=== PATIENT | female | born 1995 | race Caucasian/White ===

== ENCOUNTER 2018-08-10 18:06 | Emergency (ER) | payer OTHER ==
--- NOTE | 2018-08-10 18:12 | ER Report ---
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 Patient began to feel lightheaded and nauseous after which time she walked around outside for a while prior to proceeding to an urgent care center. Staff at the urgent care center contacted poison control who recommended evaluation for an acidosis at which time she was transferred to the emergency department for further evaluation. I spoke with the Poison Control Center shortly after patient arrival and confirm that they recommended a CBC, CMP, lactate, ABG and a cyanide level send off. Patient was well-appearing at time of evaluation, hemodynamically stable with no respiratory distress or presyncopal episodes. Patient is afebrile. Patient denies headache, chest pain, shortness breath, abdominal pain, vomiting or rashes. REVIEW OF SYSTEMS: Constitutional: No fever, no chills. Eyes: No discharge. ENT: No sore throat. Cardiovascular: No chest pain, no palpitations. Respiratory: No cough, no shortness of breath. Gastrointestinal: No abdominal pain, no vomiting, + mild nausea Genitourinary: No hematuria. Musculoskeletal: No back pain. Skin: No rashes. Neurological: No headache, + dizziness Allergies: Coded Allergies: Penicillins (Verified Allergy, Unknown, 08/10/18) Home Meds No Active Prescriptions or Reported Meds Constitutional Vital Sign - Last 24 Hours 08/10/18 08/10/18 08/10/18 08/10/18 18:10 18:10 18:21 18:36 Temp 98.0 Pulse 87 71 68 Resp 20 B/P (MAP) 110/83 (92) 110/83 Pulse Ox 98 93 96 O2 Delivery Room Air 08/10/18 08/10/18 08/10/18 08/10/18 18:51 19:06 19:21 19:36 Pulse 68 75 70 71 Pulse Ox 90 100 100 90 08/10/18 08/10/18 08/10/18 08/10/18 19:51 19:56 20:11 20:26 Pulse 65 61 68 62 Pulse Ox 100 100 100 100 08/10/18 08/10/18 08/10/1818 20:38 20:41 20:56 21:00 Pulse 67 62 B/P (MAP) 113/90 (98) 111/82 (92) Pulse Ox 100 100 08/10/18 08/10/18 08/10/18 08/10/18 21:11 21:26 21:31 21:46 Temp 98.3 Pulse 65 61 84 54 Pulse Ox 100 100 100 100 Physical Exam General Appearance: The patient is alert, has no immediate need for airway protection and no signs of toxicity. No acute distress Eyes: Pupils equal and round no pallor or injection. ENT, Mouth: Mucous membranes are moist. Respiratory: There are no retractions, lungs are clear to auscultation. Cardiovascular: Regular rate and rhythm. [ ] Gastrointestinal: Abdomen is soft and non tender, no masses, bowel sounds norm al. Neurological: No focal neurological deficits Skin: Warm and dry, no rashes. Musculoskeletal: Neck is supple non tender. Extremities are nontender, nonswollen and have full range of motion. DIFFERENTIAL DIAGNOSIS: After history and physical exam differential diagnosis was considered for dizziness including but not limited to peripheral and central causes of vertigo, orthostatic causes including dehydration, and blood loss, cyanide toxicity Medical Decision Making Data Points Result Diagram: 08/10/18 1836 08/10/18 1836 Laboratory Hematology Test 08/10/18 18:36 08/10/18 21:37 Red Blood Count 4.79 M/uL (4.17-5.56) Mean Corpuscular Volume 86.7 fL (80.0-96.0) Mean Corpuscular Hemoglobin 30.8 pg (26.0-33.0) Mean Corpuscular Hemoglobin Concent 35.5 g/dL (32.0-36.0) Red Cell Distribution Width 12.2 % (11.5-14.5) Mean Platelet Volume 9.7 fL (7.2-11.1) Neutrophils (%) (Auto) 51.8 % (39.4-72.5) Lymphocytes (%) (Auto) 39.4 % (17.6-49.6) Monocytes (%) (Auto) 7.2 % (4.1-12.4) Eosinophils (%) (Auto) 1.0 % (0.4-6.7) Basophils (%) (Auto) 0.6 % (0.3-1.4) Nucleated RBC Relative Count (auto) 0.1 /100WBC Neutrophils # (Auto) 2.8 K/uL (2.0-7.4) Lymphocytes # (Auto) 2.2 K/uL (1.3-3.6) Monocytes # (Auto) 0.4 K/uL (0.3-1.0) Eosinophils # (Auto) 0.1 K/uL (0.0-0.5) Basophils # (Auto) 0.0 K/uL (0.0-0.1) Nucleated RBC Absolute Count (auto) 0.00 K/uL Blood Gas Puncture Site Right radial Arterial Blood pH 7.54 (7.35-7.45) Arterial Blood Partial Pressure CO2 25 mmHg (32-37) Arterial Blood Partial Pressure O2 127 mmHg (60-80) Arterial Blood HCO3 22 mmol/L (20-26) Arterial Blood Oxygen Saturation 99 % (92-100) Arterial Blood Base Excess -1.0 mmol/L Gray Test Acceptable Carboxyhemoglobin 0.0 % (< 5.0) Sodium Level 138 mmol/L (137-145) Potassium Level 3.5 mmol/L (3.5-5.0) Chloride Level 104 mmol/L (98-107) Carbon Dioxide Level 23 mmol/L (22-31) Blood Urea Nitrogen 15 mg/dl (7-18) Creatinine 0.90 mg/dl (0.52-1.04) Glomerular Filtration Rate Calc > 60.0 Random Glucose 88 mg/dl (75-110) Calcium Level 9.7 mg/dl (8.4-10.2) Total Bilirubin 0.8 mg/dl (0.2-1.3) Aspartate Amino Transf (AST/SGOT) 21 U/L (0-35) Alanine Aminotransferase (ALT/SGPT) 26 U/L (0-56) Alkaline Phosphatase 44 U/L (0-126) Total Protein 7.5 g/dl (6.3-8.2) Albumin 4.3 g/dl (3.5-5.0) Human Chorionic Gonadotropin, Qual Negative (NEGATIVE) Salicylates Level < 10 mg/L Salicylate Last Dose Date unknown Acetaminophen Level < 10 ug/ml Blood Gas Patient Temperature 98.2 DEGREES Venous Blood pH 7.43 (7.31-7.41) Venous Blood Partial Pressure CO2 37 mmHg Venous Blood Partial Pressure O2 < 35 mmHg Venous Blood HCO3 0 mmol/L Venous Blood Oxygen Saturation 66 % Venous Blood Base Excess 24 mmol/L Oxygen Liters/Minute 3.5 Lactate 0.7 mmol/L (0.7-2.1) Chemistry Test 08/10/18 18:36 08/10/18 21:37 White Blood Count 5.5 k/uL (4.5-11.0) Red Blood Count 4.79 M/uL (4.17-5.56) Hemoglobin 14.7 g/dL (12.0-16.0) Hematocrit 41.5 % (34.0-47.0) Mean Corpuscular Volume 86.7 fL (80.0-96.0) Mean Corpuscular Hemoglobin 30.8 pg (26.0-33.0) Mean Corpuscular Hemoglobin Concent 35.5 g/dL (32.0-36.0) Red Cell Distribution Width 12.2 % (11.5-14.5) Platelet Count 162 K/uL (150-450) Mean Platelet Volume 9.7 fL (7.2-11.1) Neutrophils (%) (Auto) 51.8 % (39.4-72.5) Lymphocytes (%) (Auto) 39.4 % (17.6-49.6) Monocytes (%) (Auto) 7.2 % (4.1-12.4) Eosinophils (%) (Auto) 1.0 % (0.4-6.7) Basophils (%) (Auto) 0.6 % (0.3-1.4) Nucleated RBC Relative Count (auto) 0.1 /100WBC Neutrophils # (Auto) 2.8 K/uL (2.0-7.4) Lymphocytes # (Auto) 2.2 K/uL (1.3-3.6) Monocytes # (Auto) 0.4 K/uL (0.3-1.0) Eosinophils # (Auto) 0.1 K/uL (0.0-0.5) Basophils # (Auto) 0.0 K/uL (0.0-0.1) Nucleated RBC Absolute Count (auto) 0.00 K/uL Blood Gas Puncture Site Right radial Arterial Blood pH 7.54 (7.35-7.45) Arterial Blood Partial Pressure CO2 25 mmHg (32-37) Arterial Blood Partial Pressure O2 127 mmHg (60-80) Arterial Blood HCO3 22 mmol/L (20-26) Arterial Blood Oxygen Saturation 99 % (92-100) Arterial Blood Base Excess -1.0 mmol/L Gray Test Acceptable Carboxyhemoglobin 0.0 % (< 5.0) Glomerular Filtration Rate Calc > 60.0 Calcium Level 9.7 mg/dl (8.4-10.2) Total Bilirubin 0.8 mg/dl (0.2-1.3) Aspartate Amino Transf (AST/SGOT) 21 U/L (0-35) Alanine Aminotransferase (ALT/SGPT) 26 U/L (0-56) Alkaline Phosphatase 44 U/L (0-126) Total Protein 7.5 g/dl (6.3-8.2) Albumin 4.3 g/dl (3.5-5.0) Human Chorionic Gonadotropin, Qual Negative (NEGATIVE) Salicylates Level < 10 mg/L Salicylate Last Dose Date unknown Acetaminophen Level < 10 ug/ml Blood Gas Patient Temperature 98.2 DEGREES Venous Blood pH 7.43 (7.31-7.41) Venous Blood Partial Pressure CO2 37 mmHg Venous Blood Partial Pressure O2 < 35 mmHg Venous Blood HCO3 0 mmol/L Venous Blood Oxygen Saturation 66 % Venous Blood Base Excess 24 mmol/L Oxygen Liters/Minute 3.5 Lactate 0.7 mmol/L (0.7-2.1) Toxicology Test 08/10/18 18:36 Salicylates Level < 10 mg/L Salicylate Last Dose Date unknown Acetaminophen Level < 10 ug/ml ED Course/Re-evaluation ED Course 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 Patient was initially evaluated at urgent care and sent over for further evaluation at the recommendation of poison control center. Initial lab findings were unremarkable showing no signs of acidosis. Lactate was unremarkable, arterial blood gas showed no acute findings of acidosis. Carboxyhemoglobin was normal. CBC and CMP were unremarkable. Per recommendations from poison control center, lactate and ABG were repeated at 2130, 3 hours post-arrival. Patient was initially placed on oxygen for comfort and her symptoms of nausea and dizziness resolved. Repeat blood gas and LA were normal. Patient was updated regarding the lab findings and she is educated regarding concerning signs and symptoms to be aware of. Decision to Disposition Date: Aug 10, 2018 Decision to Disposition Time: 22:09 Depart Departure Latest Vital Signs Vital Signs Date Time Temp Pulse Resp B/P (MAP) Pulse Ox O2 Delivery O2 Flow Rate FiO2 08/10/18 21:46 54 100 08/10/18 21:31 98.3 08/10/18 21:00 111/82 (92) 08/10/18 18:10 20 Room Air Impression: Primary Impression: Chemical exposure Additional Impression: Nausea Condition: Improved Disposition: HOME OR SELF-CARE New Scripts No Active Prescriptions or Reported Meds Patient Instructions: Cyanide Poisoning (ED) Additional Instructions: In your discharge instructions I included information regarding cyanide chemical exposure and concerning signs and symptoms to be aware of. Your lab findings and clinical evaluation were not concerning for significant cyanide exposure. Please return promptly should develop fevers, difficulty breathing, nausea, vomiting, abdominal pain or drowsiness. Problem Qualifiers VAIBHAV RHOADES DO Aug 10, 2018 18:12
[2018-08-10 18:46] LABS: PLATELET COUNT, AUTOMATED 162 K/uL (150-450)
[2018-08-10 21:00] VITALS: BP 111/82
== END 2018-08-10 22:18 | disposition home or self-care (01) ==
LOC: ER 18:23
DX: Z77.098 Contact with and (suspected) exposure to other hazardous, chiefly nonmedicinal, chemicals (principal); R11.0 Nausea
CPT/HCPCS: 36415; 80329; 82040; 82247; 82310; 82374; 82375; 82435; 82565; 82600; 82803; 82947; 83605; 84075; 84132; 84155; 84295; 84450; 84460; 84520; 84703; 85025